=== PATIENT | female | born 1990 | race Caucasian/White ===

== ENCOUNTER 2016-06-27 14:48 | Outpatient (CLI) | payer OTHER ==
[~2016-06-27 14:48] MED LIST: KEFLEX500 MG PO
[2016-09-13] MEDS ORDERED: COLACE 100MG C100 MG PO (12:41)
== END 2016-06-27 16:34 | disposition home or self-care (01) ==
LOC: GENOP 14:48
DX: O99.89 Other specified diseases and conditions complicating pregnancy, childbirth and the puerperium (principal); R10.2 Pelvic and perineal pain; Z3A.16 16 weeks gestation of pregnancy
CPT/HCPCS: 81001; G0463

== ENCOUNTER 2021-03-10 21:58 | Emergency (ER) | payer SELFPAY ==
[~2021-03-10 21:58] MED LIST changes: +COLACE 100MG C100 MG PO
[2021-03-10 22:46] LABS: HEMOGLOBIN 12.4 gm/dl (12.3-15.3); RED BLOOD COUNT 4.07 M/UL (4.00-5.10); WHITE BLOOD COUNT 14.2 K/UL (4.5-11.0)
[2021-03-10 23:22] LABS: BUN/CREATININE RATIO 17 (0-10)
[2021-03-11] MEDS ORDERED: ONDANSETRON ODT4 MG SL (01:30)
[2021-03-11] MEDS ORDERED: CEFUROXIME500 MG PO (01:30)
[2021-03-11] MEDS ORDERED: PYRIDIUM200 MG PO (01:30)
[2021-03-11] MEDS ORDERED: IBUPROFEN800 MG PO (01:30)
== END 2021-03-11 01:49 | disposition home or self-care (01) ==
LOC: ER1 21:58
PROVIDERS: Emergency Medicine
DX: N10 Acute pyelonephritis (principal); E87.6 Hypokalemia; F17.200 Nicotine dependence, unspecified, uncomplicated
CPT/HCPCS: 80053; 81001; 83690; 84703; 85025; 96374; 96375; 96376; 99284; J1885; J2270; J2405